=== PATIENT | female | born 1960 | race Caucasian/White ===

== ENCOUNTER 2022-12-28 07:12 | Emergency (ER) | payer OTHER ==
[2022-12-28] VITALS (7 sets, daily range): BP systolic 135–149; BP diastolic 73–89
[~2022-12-28] VITALS: Ht 154.9 cm; Wt 102.2 kg
== END 2022-12-28 12:25 | disposition home or self-care (01) | DRG 556 ==
LOC: ED 07:12
DX: M62.838 Other muscle spasm (principal); R07.81 Pleurodynia; M54.9 Dorsalgia, unspecified; V85.5XXA Driver of special construction vehicle injured in nontraffic accident, initial encounter; Y99.0 Civilian activity done for income or pay